=== PATIENT | female | born 1945 | race Caucasian/White ===

== ENCOUNTER 2023-01-09 15:19 | Outpatient (CLI) | payer MEDICARE, BC | END 2023-01-09 15:20 | disposition home or self-care (01) | LOC: CSHMAMMO 15:19 | PROVIDERS: ATTEND Internal Medicine | DX: Z12.31 Encounter for screening mammogram for malignant neoplasm of breast (principal) | CPT/HCPCS: 77063; 77067 ==

== ENCOUNTER 2024-06-20 10:35 | Outpatient (CLI) | payer MEDICARE ==
[2024-06-20] MEDS ORDERED: Magnevist 469MG/ML 20 ML VIAL ONE (10:59)
== END 2024-06-20 10:36 | disposition home or self-care (01) ==
LOC: CSHMRI 10:35
PROVIDERS: ATTEND Psychiatry & Neurology Neurology
DX: M48.061 Spinal stenosis, lumbar region without neurogenic claudication (principal); M47.816 Spondylosis without myelopathy or radiculopathy, lumbar region
CPT/HCPCS: 72158; A9579